=== PATIENT | female | born 1970 | race Caucasian/White ===

== ENCOUNTER 2016-07-16 06:24 | Day surgery (SDC) | payer SELFPAY ==
[2016-07-10 13:27] VITALS: BMI 25.4
[2016-07-16 07:18] LABS: PH,URINE 5.5 (4.5-8); URINE APPEARANCE Clear; URINE BILIRUBIN Negative (NEGATIVE); URINE COLOR YELLOW; URINE GLUCOSE (UA) Negative (NEGATIVE); URINE KETONE Negative (NEGATIVE); URINE LEUK ESTERASE Negative (NEGATIVE); URINE NITRITE Negative (NEGATIVE); URINE PROTEIN Negative (NEGATIVE); URINE UROBILINOGEN 0.2 E.U/dl (0.2-1.0)
[2016-07-16 07:32] LABS: URINE BLOOD 1 (NEGATIVE)
[2016-07-16] MEDS ORDERED: BACITRACIN/POLYMYXIN OPH OINT 3.5 GM TUBE ONE (07:32)
[2016-07-16] MEDS ORDERED: BUPIVACAINE HCL/PF 2.5 MG/ML - 30 ML VIAL IJ ONE (07:32)
[2016-07-16] MEDS ORDERED: GENTAMICIN SO4 80 MG/2 ML VIAL ONE (07:32)
[2016-07-16] MEDS ORDERED: ceFAZolin SODIUM 1 GM VIAL ONE ×2 (07:32→08:22)
[2016-07-16] MEDS ORDERED: LIDOCAINE 1%-EPI 1:100,000 30 ML MDV IJ ONE (07:33)
[2016-07-16] MEDS ORDERED: MIDAZOLAM HCL 2 MG/2 ML SINGLE DOSE VIAL ONE ×2 (07:47→09:22)
[2016-07-16] MEDS ORDERED: PROPOFOL 20 ML ONE ×2 (07:47→11:53)
[2016-07-16 07:59] LABS: URINE WBC 0-3 (3-5)
[2016-07-16 08:00] LABS: URINE BACTERIA FEW /hpf (NEGATIVE)
[2016-07-16] MEDS ORDERED: SCOPOLAMINE HYDROBROMIDE 1 PATCH PATCH.TD72 ONE (08:04)
[2016-07-16] MEDS ORDERED: SUCCINYLCHOLINE CHLORIDE 200 MG/10 ML VIAL ONE (08:11)
[2016-07-16] MEDS ORDERED: ONDANSETRON 4 MG/2 ML VIAL ONE (08:22)
[2016-07-16] MEDS ORDERED: DEXAMETHASONE SOD PHOSPHATE 4 MG/1 ML VIAL ONE (08:22)
[2016-07-16] MEDS ORDERED: LIDOCAINE 1%/EPI 1:100000 (20 ML MULTI DOSE VIAL) INF ONE (08:40)
[2016-07-16] MEDS ORDERED: BUPIVACAINE HCL/PF 0.25% (2.5MG/ML) 10 ML VIAL IJ ONE (08:41)
[2016-07-16] MEDS ORDERED: ePHEDrine SULFATE 50 MG/1 ML AMPULE ONE (08:55)
[2016-07-16] MEDS ORDERED: DESFLURANE GAS 240 ML BOTTLE IH ONE (10:59)
[2016-07-16] MEDS ORDERED: LACTATED RINGERS SOLUTION 1,000 ML IV SCH (12:30)
[2016-07-16] MEDS ORDERED: PROMETHAZINE HCL 25 MG/1 ML VIAL IVPUSH PRN (12:31)
[2016-07-16] MEDS ORDERED: oxyCODONE HCL 5 MG TABLET PO PRN (12:31)
[2016-07-16] MEDS ORDERED: KETOROLAC TROMETHAMINE 30 MG/1 ML VIAL ONE (12:44)
[2016-07-16] MEDS ORDERED: KETOROLAC TROMETHAMINE 30 MG/1 ML VIAL IVPUSH ONE (13:37)
[2016-07-16 14:19] VITALS: BP 110/58; PULSE 62; TEMP 98.6
[2016-07-16] MEDS ORDERED: oxyCODONE HCL 5 MG TABLET ONE (14:22)
--- NOTE | 2016-07-17 08:26 | PATH ---
Surgical Pathology Report Patient Name: FAUSTINA BUSTAMANTE Med. Rec. #: [id number] /Age/Gender: 1970 (Age: 45) / F Account: [id number] Location: [facility] AMBULATORY Taken: 07/16/2016 Received: 07/16/2016 Reported: 07/17/2016 Physicians: Dominga Jean M.D. Specimen(s) Received A: LEFT EXPLANT BREAST B: RIGHT EXPLANT BREAST Clinical History Cosmetic Final Diagnosis A. CLASSIFICATION OFFICER, LEFT BREAST, REMOVAL: BREAST IMPLANT (GROSS ONLY). B. CLASSIFICATION OFFICER, RIGHT BREAST, REMOVAL: BREAST IMPLANT (GROSS ONLY). Electronically Signed Thierry De Santiago M.D. Gross Description A. Received fresh labeled "left explant," is a 12 cm in diameter x 4 cm in depth clear, rubbery breast implant. No soft tissue is present. No sections are submitted, gross only. B. Received fresh labeled "right explant," is a 12.5 cm in diameter x 4 cm in depth clear, rubbery breast implant. No soft tissue is present. No sections are submitted, gross only. /07/16/2016 saudi07/16/2016
== END 2016-07-16 15:00 | disposition home or self-care (01) ==
LOC: FASU 06:24
PROVIDERS: ATTEND Surgery
PROC: 0H0V0JZ Alteration of Bilateral Breast with Synthetic Substitute, Open Approach (ICD-10-PCS; principal; 2016-07-16 08:40)
PROC: 0HNV0ZZ Release Bilateral Breast, Open Approach (ICD-10-PCS; 2016-07-16 08:40)
DX: Z41.1 Encounter for cosmetic surgery (principal)
CPT/HCPCS: 81003; 81015; 84703; 88300-TC; 94760